=== PATIENT | female | born 1995 | race Caucasian/White ===

== ENCOUNTER 2017-09-30 15:36 | Emergency (ER) | payer BC ==
[~2017-09-30] VITALS: Ht 177.8 cm; Wt 104.0 kg
[~2017-09-30 15:36] MED LIST: PRINIVIL5 MG PO; TRINESSA1 EACH PO
[2017-09-30 16:28] LABS: HEMATOCRIT 41.2 % (36.0-46.0); HEMOGLOBIN 14.9 G/DL (11.9-15.5); MCH 31.6 PG (29.0-34.0); MCHC 36.2 G/DL (30.0-36.0); MCV 87.3 FL (83-99); PLATELET COUNT 238 K/uL (156-360); RBC DIS.WIDTH-SD 38.8 % (39-53); RED BLOOD COUNT 4.72 M/uL (3.80-5.20); WHITE BLOOD COUNT 9.6 K/uL (4.1-10.2)
[2017-09-30 16:36] LABS: ALBUMIN 4.3 g/dL (3.2-4.8); CHLORIDE 107 mEq/L (99-109); POTASSIUM 4.2 mEq/L (3.7-5.4); SODIUM 138 mEq/L (136-147)
[2017-09-30 16:38] LABS: GLUCOSE 98 mg/dL (70-99); TOTAL PROTEIN 7.4 g/dL (6.4-8.3)
[2017-09-30 16:40] LABS: TOTAL BILIRUBIN 0.4 mg/dL (0.0-1.0)
[2017-09-30 16:42] LABS: ALKALINE PHOSPHATASE 61 IU/L (3-129); CREATININE 0.8 mg/dL (0.6-1.3); GFR ESTIMATE (CALCULATED) > 59 mL/min/
[2017-09-30 16:43] LABS: UREA NITROGEN (BUN) 12 mg/dL (9-23)
[2017-09-30 16:44] LABS: AST (GOT) 49 IU/L (2-34)
[2017-09-30 16:45] LABS: ALT (GPT) 30 IU/L (3-49)
[2017-09-30 16:52] LABS: QUANTITATIVE HCG < 4.0 MIU/ML
[2017-09-30 18:08] LABS: APPEARANCE CLOUDY ((CLEAR)); BILIRUBIN NEGATIVE; BLOOD NEGATIVE; COLOR YELLOW ((YELLOW)); GLUCOSE (STRIP) NEGATIVE; KETONES NEGATIVE; LEUKOCYTES MODERATE; NITRITE NEGATIVE; PROTEIN (STRIP) NEGATIVE; SPECIFIC GRAVITY 1.014 (1.000-1.030); UROBILINOGEN 0.2 MG/DL (0.2-1.0)
[2017-09-30 18:15] LABS: BACTERIA NONE SEEN /HPF; EPITHELIAL CELLS 4+ /HPF; MUCUS NONE SEEN /LPF; RED BLOOD CELLS 0-5 /HPF (0-5); UCUL ADDED? YES
[2017-09-30] MEDS ORDERED: ULTRAM50 MG PO (18:23)
[2017-09-30 18:33] VITALS: BP 160/103
== END 2017-09-30 18:34 | disposition home or self-care (01) ==
LOC: EME 15:36
DX: R10.9 Unspecified abdominal pain (principal); I10 Essential (primary) hypertension; Z88.0 Allergy status to penicillin
CPT/HCPCS: 76705; 80053; 81003; 84702; 85027; 87086; 99281; 99284